=== PATIENT | male | born 1950 | race Caucasian/White ===

== ENCOUNTER 2020-08-16 00:49 | Observation (INO) ==
[2020-08-16] MEDS ORDERED: Naloxone 0.4 MG/ML INJ IVP PRN (01:34)
[2020-08-16] MEDS ORDERED: *HR* Heparin 5,000 UNIT/ML VIAL IVP PRN ×2 (02:11)
[2020-08-16] MEDS ORDERED: Heparin 25,000UNIT/250ML 1/2NS 25,000 UNIT/250 ML IV.SOLN IVC SCH (02:15)
[2020-08-16] MEDS ORDERED: Ondansetron ODT 4 MG TAB.RAPDIS SL PRN (04:11)
[2020-08-16] MEDS: Ipratropium 1 PUFF INHALER IH SCH ×5 (04:29→20:16)
[2020-08-16 05:11] LABS: Hematocrit 42.4 % (37.5-50.1); Hemoglobin 13.1 g/dL (12.9-16.9); Mean Corpuscular HGB Conc 30.9 g/dL (31.6-35.5); Mean Corpuscular Hemoglobin 27.5 pg (28.0-33.3); Mean Corpuscular Volume 88.9 fL (83.0-100.0); Platelet Count 186 K/mcL (140-400); Red Blood Count 4.77 M/mcL (4.19-5.50); Red Cell Distribution Width 13.9 % (11.5-14.5); White Blood Count 12.7 K/mcL (4.3-11.1)
[2020-08-16 05:16] LABS: Heparin anti-factor XA UFH 0.21 IU/mL (0.30-0.70)
[2020-08-16 05:18] LABS: Activated Partial Thrombo Time 31.2 Seconds (26.0-36.0)
[2020-08-16] MEDS: MethylPREDNISolone 40 MG/ML VIAL IVP SCH ×2 (05:19→10:55)
[2020-08-16 05:33] LABS: Alanine Aminotransferase 11 Units/L (7-52); Albumin 3.9 g/dL (3.5-5.7); Albumin/Globulin Ratio 1.3 (1.1-2.2); Alkaline Phosphatase 79 Units/L (34-104); Aspartate Amino Transferase 10 Units/L (13-39); BUN/Creatinine Ratio 25 (6-26); Bilirubin,Total 0.5 mg/dL (0.3-1.0); Blood Urea Nitrogen 23 mg/dL (8-23); C-Reactive Protein 168 mg/L (Less than 10); Calcium 8.9 mg/dL (8.6-10.3); Carbon Dioxide 22 mEq/L (23-29); Chloride 101 mEq/L (98-107); Glucose 332 mg/dL (70-105); Osmolality,Calculated 291 (280-300); Potassium 4.8 mEq/L (3.5-5.1); Sodium 132 mEq/L (136-145); Total Protein 6.9 g/dL (6.4-8.9); eGFR For African Americans > 60 (> 60); eGFR For Non-African Americans > 60 (> 60)
[2020-08-16] MEDS: *HR* OxyCODONE Immed Rel 15 MG TABLET PO PRN ×2 (05:37→14:10)
[2020-08-16 05:49] LABS: Ferritin 98 ng/mL (20-250)
[2020-08-16] MEDS ORDERED: Dextrose Gel 15 GM/37.5 ML TUBE PO PRN ×2 (07:52)
[2020-08-16] MEDS ORDERED: D5% in Water 1,000 ML IVC PRN (07:52)
[2020-08-16] MEDS ORDERED: *HR* Dextrose 50 % in Water (Vial) 50 ML VIAL IVP PRN (07:52)
[2020-08-16] MEDS: Gabapentin 400 MG CAPSULE PO SCH ×3 (08:06→21:18)
[2020-08-16] MEDS: Lisinopril-HCTZ 20-12.5mg TABLET PO SCH ×2 (08:06→21:18)
[2020-08-16] MEDS ORDERED: Azithromycin 500 MG in 0.9 % Sodium Chloride 250 ML IVPB SCH (09:00)
[2020-08-16] MEDS: Insulin DETEMIR 100 UNIT/ML X5UNITS SUBQ SCH ×2 (09:22→21:19)
[2020-08-16] MEDS ORDERED: Perflutren Lipid Microsphere 1.3 ML in 0.9 % Sodium Chloride 8.7 ML IVP PRN (12:01)
[2020-08-16] MEDS: Aspirin 81 MG TAB.CHEW PO SCH (12:18)
[2020-08-16] MEDS: Insulin LISPRO 300 UNITS/3 ML VIAL SUBQ SCH ×2 (12:37→16:23)
[2020-08-16] MEDS ORDERED: *HR* HYDROmorphone 2 MG TABLET PO SCH (13:00)
[2020-08-16] MEDS: levoFLOXacin 750 MG/150 ML 750 MG/150 ML BAG IVPB SCH (14:11)
[2020-08-16] MEDS: *HR* HYDROmorphone 2 MG TABLET PO SCH (18:29)
[2020-08-16] MEDS ORDERED: Insulin LISPRO 300 UNITS/3 ML VIAL SUBQ SCH ×2 (21:00)
[2020-08-17] MEDS: *HR* HYDROmorphone 2 MG TABLET PO SCH ×3 (00:08→11:31)
[2020-08-17] MEDS: Ipratropium 1 PUFF INHALER IH SCH ×4 (00:19→11:45)
[2020-08-17] MEDS ORDERED: *HR* Enoxaparin 40 MG/0.4 ML SYRINGE SQ SCH (06:00)
[2020-08-17] MEDS: Aspirin 81 MG TAB.CHEW PO SCH (07:56)
[2020-08-17] MEDS: Lisinopril-HCTZ 20-12.5mg TABLET PO SCH (07:57)
[2020-08-17] MEDS: levoFLOXacin 750 MG/150 ML 750 MG/150 ML BAG IVPB SCH (07:57)
[2020-08-17] MEDS: Gabapentin 400 MG CAPSULE PO SCH (07:57)
[2020-08-17] MEDS: Insulin DETEMIR 100 UNIT/ML X5UNITS SUBQ SCH (07:57)
[2020-08-17] MEDS: Insulin LISPRO 300 UNITS/3 ML VIAL SUBQ SCH ×2 (07:58→11:31)
[2020-08-17 08:16] LABS: BUN/Creatinine Ratio 30 (6-26); Blood Urea Nitrogen 28 mg/dL (8-23); Carbon Dioxide 26 mEq/L (23-29); Chloride 101 mEq/L (98-107); Glucose 259 mg/dL (70-105); Osmolality,Calculated 296 (280-300); Potassium 4.6 mEq/L (3.5-5.1); Sodium 136 mEq/L (136-145); eGFR For African Americans > 60 (> 60); eGFR For Non-African Americans > 60 (> 60)
[2020-08-17] MEDS ORDERED: predniSONE 20 MG TABLET PO SCH (09:00)
[2020-08-19 09:39] LABS: SARS-CoV-2 by NAA NOT DETECTED
== END 2020-08-17 13:35 | disposition home or self-care (01) ==
LOC: 2NENU → SUATTDRO 00:49
PROVIDERS: ADMIT Student in an Organized Health Care Education/Training Program; ATTEND Internal Medicine